=== PATIENT | male | born 1970 | race Caucasian/White ===

== ENCOUNTER 2019-11-20 17:45 | Emergency (ER) | payer MEDICAID ==
[~2019-11-20] VITALS: Ht 182.9 cm; Wt 112.9 kg
[2019-11-20 18:11] VITALS: Ht 182.9 cm; Wt 112.9 kg
[2019-11-20 22:25] VITALS: BP 183/106
== END 2019-11-20 22:25 | disposition home or self-care (01) ==
LOC: ED 17:45
DX: S10.96XA Insect bite of unspecified part of neck, initial encounter (principal); L08.9 Local infection of the skin and subcutaneous tissue, unspecified; E11.9 Type 2 diabetes mellitus without complications; Z88.8 Allergy status to other drugs, medicaments and biological substances; W57.XXXA Bitten or stung by nonvenomous insect and other nonvenomous arthropods, initial encounter; Y93.89 Activity, other specified; Y92.89 Other specified places as the place of occurrence of the external cause; Y99.8 Other external cause status
CPT/HCPCS: 82962; Q0163

== ENCOUNTER 2019-12-15 04:12 | Emergency (ER) | payer MEDICAID ==
[~2019-12-15] VITALS: Ht 182.9 cm; Wt 113.4 kg
[2019-12-15 04:20] VITALS: Ht 182.9 cm; Wt 113.4 kg
[2019-12-15 05:02] VITALS: BP 155/95
== END 2019-12-15 05:02 | disposition home or self-care (01) ==
LOC: ED 04:12
DX: L03.221 Cellulitis of neck (principal); E11.9 Type 2 diabetes mellitus without complications; Z88.6 Allergy status to analgesic agent; Z88.8 Allergy status to other drugs, medicaments and biological substances